=== PATIENT | male | born 1980 | race African-American/Black ===

== ENCOUNTER 2019-05-04 18:40 | Emergency (ER) | payer OTHER ==
[~2019-05-04] VITALS: Ht 198.1 cm; Wt 102.1 kg
[2019-05-04 20:08] VITALS: BP 120/75
[2019-05-04 20:08] LABS: URINE BILIRUBIN NEGATIVE (Negative); URINE BLOOD TRACE (Negative); URINE CLARITY CLEAR; URINE COLOR YELLOW; URINE GLUCOSE-RANDOM NEGATIVE (Negative); URINE KETONES TRACE (Negative); URINE LEUKOCYTES-REFLEX NEGATIVE (Negative); URINE NITRITE-REFLEX NEGATIVE (Negative); URINE PROTEIN NEGATIVE (Negative); URINE SPECIFIC GRAVITY 1.025 (1.005-1.030)
== END 2019-05-04 20:09 | disposition home or self-care (01) ==
LOC: M.ERS 18:40
PROVIDERS: Physician Assistant
DX: Z20.2 Contact with and (suspected) exposure to infections with a predominantly sexual mode of transmission (principal); F17.210 Nicotine dependence, cigarettes, uncomplicated

== ENCOUNTER 2019-08-05 14:19 | Emergency (ER) | payer OTHER ==
[~2019-08-05] VITALS: Ht 198.1 cm; Wt 95.3 kg
[2019-08-05 14:31] VITALS: BP 145/94
[2019-08-05] MEDS ORDERED: PHENERGAN 25 MG25 M1 PO (14:52)
[2019-08-05] MEDS ORDERED: HYDROXYZINE HCL25 M2 PO (14:52)
== END 2019-08-05 15:03 ==
LOC: M.ERS 14:19
DX: F41.9 Anxiety disorder, unspecified (principal); F19.10 Other psychoactive substance abuse, uncomplicated; F15.10 Other stimulant abuse, uncomplicated